=== PATIENT | female | born 1995 | race African-American/Black ===

== ENCOUNTER 2023-04-25 15:23 | Inpatient (IN) | payer OTHER ==
[2023-04-25 16:02] LABS: Hemoglobin 11.9 g/dL (12.0-15.5); Mean Corpuscular Hemoglobin 28.3 pg (27.0-33.0); Mean Corpuscular Volume 83.3 fl (81.6-98.3); Mean Platelet Volume 11.6 fl (7.4-10.4); Platelet Count 195 10x3/uL (150-450); RBC Distribution Width 13.8 % (11.5-14.5); White Blood Cell (WBC) Count 7.2 10x3/uL (3.5-10.5)
[2023-04-25] MEDS ORDERED: Misoprostol 200 MCG TAB PR PRN (16:39)
[2023-04-25] MEDS ORDERED: Tranexamic Acid 1,000 MG/10 ML VIAL IVP PRN (16:39)
[2023-04-25] MEDS ORDERED: Ibuprofen 800 MG TAB PO PRN (16:39)
[2023-04-25] MEDS ORDERED: hydrALAZINE 20 MG/ML VIAL SLOW IVP PRN ×2 (16:39→20:30)
[2023-04-25] MEDS ORDERED: Carboprost 250 MCG/ML AMP IM PRN (16:39)
[2023-04-25] MEDS ORDERED: fentaNYL 50 mcg/mL 1 mL Vial SLOW IVP PRN (16:39)
[2023-04-25] MEDS ORDERED: Methylergonovine 0.2 MG/ML VIAL IM PRN ×2 (16:39→20:30)
[2023-04-25] MEDS ORDERED: Acetaminophen 500 MG TAB PO PRN (16:39)
[2023-04-25] MEDS ORDERED: Promethazine HCl 25 MG/ML VIAL IM PRN ×2 (16:39→20:30)
[2023-04-25] MEDS ORDERED: Ondansetron PF 4 MG/2 ML Vial IVP PRN ×2 (16:39→20:30)
[2023-04-25] MEDS ORDERED: Butorphanol Tartrate 1 MG/ML VIAL SLOW IVP PRN (16:39)
[2023-04-25] MEDS ORDERED: Diphenoxylate HCl/Atropine Tablet PO PRN (16:39)
[2023-04-25] MEDS ORDERED: Lidocaine 1% (PF) 30 ML VIAL SC PRN (16:39)
[2023-04-25] MEDS ORDERED: fentaNYL 50 mcg/mL 1 mL Vial ONE (16:42)
[2023-04-25] MEDS ORDERED: Carboprost 250 MCG/ML AMP ONE (16:42)
[2023-04-25] MEDS ORDERED: Methylergonovine 0.2 MG/ML VIAL ONE (16:43)
[2023-04-25] MEDS ORDERED: Tranexamic Acid 1,000 MG/10 ML VIAL ONE (16:43)
[2023-04-25] MEDS ORDERED: Misoprostol 200 MCG TAB ONE (16:43)
[2023-04-25] MEDS ORDERED: Lactated Ringer's 1,000 ML IV SCH (16:45)
[2023-04-25] MEDS ORDERED: NS w/ Oxytocin 30 units 500 ML IV SCH ×2 (16:45→20:30)
[2023-04-25] MEDS ORDERED: fentaNYL 50 mcg/mL 1 mL Vial SLOW IVP SCH (17:00)
[2023-04-25] MEDS ORDERED: NS w/ Oxytocin 30 units 500 ML ONE (17:03)
[2023-04-25 17:16] VITALS: BMI 31.3
[2023-04-25 17:50] LABS: HBSAg Index 0.12 S/CO (0-0.99); Hep B Surf Ag - L&D Non-Reactive S/CO (NonReactive)
[2023-04-25 17:51] LABS: Syphilis Antibody Nonreactive (Nonreactive); Syphilis Antibody Index 0.11 S/CO (<1.00 Non-Reactive)
[2023-04-25] MEDS ORDERED: Bisacodyl 10 MG SUPP PR PRN (20:30)
[2023-04-25] MEDS ORDERED: Misoprostol 200 MCG TAB VAG PRN (20:30)
[2023-04-25] MEDS ORDERED: Milk Of Magnesia 30 ML UDCUP PO PRN (20:30)
[2023-04-25] MEDS ORDERED: Preparation H Ointment 28 GM TUBE PR PRN (20:30)
[2023-04-25] MEDS ORDERED: Lanolin Ointment 7 GM TUBE TOP PRN (20:30)
[2023-04-25] MEDS ORDERED: diphenhydrAMINE 25 MG CAP PO PRN (20:30)
[2023-04-25] MEDS ORDERED: Boostrix 0.5 ML (Tdap) VIAL (>/=7 yrs of age) IM ONE (20:30)
[2023-04-25] MEDS ORDERED: Benzocaine-Menthol 82.5 ML CAN TOP PRN (20:30)
[2023-04-25] MEDS: busPIRone HCl 5 MG TAB PO SCH (21:30)
[2023-04-25] MEDS: Docusate 100 MG CAP PO SCH (21:30)
[2023-04-25] MEDS ORDERED: Ibuprofen 800 MG TAB PO SCH (22:00)
[2023-04-26] MEDS: Ibuprofen 800 MG TAB PO SCH ×3 (00:07→15:56)
[2023-04-26] MEDS: Acetaminophen 500 MG TAB PO PRN ×2 (02:11→13:39)
[2023-04-26 03:14] LABS: #Eosinphils 0.1 10x3/uL (0.0-0.5); #Monocytes 1.1 10x3/uL (0.0-1.1); %Basophils 0.1 % (0.0-2.0); %Eosinophils 1.1 % (0.0-6.0); %Lymphocytes 20.7 % (18.0-47.0); %Monocytes 10.7 % (0.0-10.0); Hemoglobin 9.5 g/dL (12.0-15.5); Mean Corpuscular HGB CONC 33.2 g/dL (32.0-36.0); Mean Corpuscular Hemoglobin 28.2 pg (27.0-33.0); Mean Corpuscular Volume 84.9 fl (81.6-98.3); Mean Platelet Volume 11.9 fl (7.4-10.4); Platelet Count 146 10x3/uL (150-450); RBC Distribution Width 13.7 % (11.5-14.5); Red Blood Cell (RBC) Count 3.37 10x6/uL (3.90-5.03); White Blood Cell (WBC) Count 10.5 10x3/uL (3.5-10.5)
[2023-04-26] MEDS: Prenatal Vitamin 1 TAB PO SCH (08:04)
[2023-04-26] MEDS: Docusate 100 MG CAP PO SCH ×2 (08:04→21:00)
[2023-04-26] MEDS: Sertraline 25 MG TAB PO SCH (08:04)
[2023-04-26] MEDS: busPIRone HCl 5 MG TAB PO SCH ×2 (08:05→21:00)
[2023-04-26] MEDS: Ferrous Sulfate 325 MG TAB PO SCH ×2 (08:05→15:56)
[2023-04-26] MEDS: Simethicone Chewable 80 MG TAB PO SCH ×2 (13:49→21:01)
[2023-04-26] MEDS ORDERED: Ondansetron ODT 8 MG TAB SL PRN (19:24)
[2023-04-27] MEDS: Ibuprofen 800 MG TAB PO SCH ×2 (02:20→09:50)
[2023-04-27 07:12] VITALS: BP 99/57; TEMP 98.9
[2023-04-27] MEDS: Docusate 100 MG CAP PO SCH (08:33)
[2023-04-27] MEDS: Prenatal Vitamin 1 TAB PO SCH (08:33)
[2023-04-27] MEDS: Sertraline 25 MG TAB PO SCH (08:33)
[2023-04-27] MEDS: busPIRone HCl 5 MG TAB PO SCH (08:33)
[2023-04-27] MEDS: Ferrous Sulfate 325 MG TAB PO SCH (08:33)
[2023-04-27] MEDS: Simethicone Chewable 80 MG TAB PO SCH (08:33)
== END 2023-04-27 17:05 | disposition home or self-care (01) | DRG 806 ==
LOC: CSHLD/OP 15:23 → CSHLD 16:00 → CSHPP 19:20
PROVIDERS: ADMIT Obstetrics & Gynecology; ATTEND Obstetrics & Gynecology
PROC: 10E0XZZ Delivery of Products of Conception, External Approach (ICD-10-PCS; principal; 2023-04-25)
DX: O99.344 Other mental disorders complicating childbirth (principal); D62 Acute posthemorrhagic anemia; Z37.0 Single live birth; O69.89X0 Labor and delivery complicated by other cord complications, not applicable or unspecified; O90.81 Anemia of the puerperium; F32.9 Major depressive disorder, single episode, unspecified; Z98.890 Other specified postprocedural states; Z86.39 Personal history of other endocrine, nutritional and metabolic disease; Z82.49 Family history of ischemic heart disease and other diseases of the circulatory system; Z83.3 Family history of diabetes mellitus; Z80.0 Family history of malignant neoplasm of digestive organs; Z80.8 Family history of malignant neoplasm of other organs or systems; Z79.899 Other long term (current) drug therapy; Z79.83 Long term (current) use of bisphosphonates; Z3A.37 37 weeks gestation of pregnancy; Z86.2 Personal history of diseases of the blood and blood-forming organs and certain disorders involving the immune mechanism
CPT/HCPCS: 36415; 51701; 85025; 85027; 86780; 86850; 86900; 86901; 87340; 99285; J2210; J2590; J3010; J3490; J7120; Q0162